=== PATIENT | female | born 1975 | race Caucasian/White ===

== ENCOUNTER → 2018-09-25 | Outpatient (REF) | payer OTHER | LOC: M SFHCLERA 10:48 | DX: J02.9 Acute pharyngitis, unspecified (principal) ==

== ENCOUNTER → 2019-01-22 | Outpatient (CLI) | payer OTHER ==
--- NOTE | 2019-01-22 15:04 | REPMRS ---
Patient History The patient states she has not had a clinical breast exam in over a year. Family history of breast cancer in maternal grandmother. 3D TOMOSYNTHESIS WAS PERFORMED. Digital Mammo Screening Bilat: January 22, 2019 - Exam #: [id number] Bilateral CC and MLO view(s) were taken. Technologist: Mitra Lai, Technologist Prior study comparison: 2016, bilateral digital woman screen mammo, performed at [facility]. FINDINGS: The breast tissue is heterogeneously dense. This may lower the sensitivity of mammography. There has been no change in the appearance of the mammogram from the prior studies. There is a moderate amount of residual fibroglandular tissue which is fairly symmetric. There is no interval development of dominant mass, areas of architectural distortion, or clustered microcalcification typical of malignancy. Assessment: BI-RADS/ACR category 1 mammogram. Negative Mammogram. Recommendation Routine screening mammogram in 1 year (for women over age 40). This mammogram was interpreted with the aid of an FDA-approved computer-aided dectection system. Electronically Signed By: Dawson Priest MD 01/22/19 9243
== END ==
LOC: M RAD 13:42
PROVIDERS: ATTEND Family Medicine
DX: Z12.31 Encounter for screening mammogram for malignant neoplasm of breast (principal); Z80.3 Family history of malignant neoplasm of breast